=== PATIENT | male | born 1955 | race Caucasian/White ===

== ENCOUNTER 2024-05-17 06:11 | Day surgery (SDC) | payer MEDICARE, SELFPAY ==
--- NOTE | 2024-05-04 14:18 | VNURNOTE ---
[facility] liaison called patient to discuss [facility] joint protocol, post op plans. No answer, left message.
--- NOTE | 2024-05-04 14:25 | VNURNOTE ---
Patient is scheduled for an elective L RAMON on 05/17/24 - he is a same day patient with Dr Smith. Spoke with patient prior to surgery. Introduced role of [facility] Liaison. Patient reports that he lives with his in a MULTI story home.
There are 2 steps to enter and a flight of steps to the second floor.
There is a bathroom on the entry level manager. He currently functions independently. He will be obtaining a rolling walker next week.
PCP is Dr Rafy Fields.
Discussed [facility] joint protocol and post surgical plans.
Reviewed that he will have VN services initially and will then start outpatient PT.
Patient selects [facility] for his home care needs and [facility]. He thinks it is scheduled for 05/22.
Patient is in agreement with plan and states that his will be home with him. Advised to bring RW with him day of surgery. [facility].
Plan: [facility] per [facility] joint protocol then outpt PT on 05/22
[2024-05-08 11:32] LABS: % Eosinophils 4.1 % (0-6); % Immature Granulocytes 0.4 % (0-0.5); % Lymphocytes 25.8 % (20.5-51.1); % Monocytes 7.4 % (1.7-9.3); % Neutrophils 61.3 % (42.2-75.2); Absolute Basophils 0.1 10^3/uL (0-0.2); Absolute Eosinophils 0.2 10^3/uL (0-0.7); Absolute Lymphocytes 1.3 10^3/uL (1.2-3.4); Absolute Monocytes 0.4 10^3/uL (0.1-0.6); Absolute Neutrophils 3.2 10^3/uL (1.4-6.5); Hematocrit 49.7 % (39.0-52.0); Hemoglobin 16.8 g/dL (13.0-18.0); Mean Corp Hgb Conc. 33.8 g/dL (33.0-37.0); Mean Corpuscular Hgb 33.3 pg (27.0-31.0); Mean Corpuscular Volume 98.4 fL (80.0-94.0); Mean Platelet Volume 9.9 fL (7.4-10.4); Nucleated Red Blood Cells % 0 % (-); Platelet Count 178 10^3/uL (130-400); Red Blood Cell Count 5.05 10^6/uL (4.70-6.10); Red Cell Dist. Width 13.7 % (11.5-14.5); White Blood Cell Count 5.2 10^3/uL (4.8-10.8)
[2024-05-08 11:58] LABS: ALT (SGPT) 31 U/L (0-50); AST (SGOT) 27 U/L (17-59); Albumin 4.4 g/dl (3.5-5.0); Alkaline Phosphatase 71 U/L (38-126); Blood Urea Nitrogen 20 mg/dl (9-20); Calcium 10.5 mg/dl (8.4-10.2); Carbon Dioxide 25 mmol/L (22-30); Chloride 106 mmol/L (98-107); Glucose 120 mg/dl (70-99); Potassium 4.4 mmol/L (3.5-5.1); Sodium 141 mmol/L (135-145); Total Bilirubin 0.4 mg/dl (0.2-1.3); Total Protein 6.9 g/dl (6.3-8.2); eGFR > 60.00
[2024-05-08 12:21] LABS: Glycohemoglobin (HgbA1c) 5.3 % (4.0-5.6)
[2024-05-08 13:41] VITALS: BMI 27.9
[2024-05-11 10:47] VITALS: BMI 27.9
[2024-05-17] VITALS (14 sets, daily range): BP systolic 102–159; BP diastolic 50–101; PULSE 82; O2SAT 96; BMI 27.9
[2024-05-17] MEDS: CELEBREX 200 MG PO (06:31)
[2024-05-17] MEDS: TYLENOL 650 MG PO (06:31)
[2024-05-17] MEDS: NORMOSOL-R/PLASMALYTE-A 1000 IV (06:32)
--- NOTE | 2024-05-17 07:06 | W.DS.TRANS ---
DC Summary - [employer]
-
Discharge Instructions:
Discharge Diagnosis/Procedures L RAMON 05/17/24
Diet As tolerated
Activity With Walker
Driving Restrictions No driving
Bathing Restrictions OK to Shower
Other Services PT
Instructions:
Stand-Alone Forms: [facility] Total Hip and Knee D/C
Changes to Home Medications: Yes
Discharge Medications:
DC Medications w/original date entered in [facility]
ascorbic acid (vitamin C) 500 mg tablet (Vitamin C) 500 mg PO DAILY 05/02/24
coQ10 (ubiquinol) 100 mg capsule (Qunol Elver CoQ10) 100 mg PO DAILY 05/02/24
doxycycline hyclate 20 mg tablet 20 mg PO DAILY gum disease 05/02/24
fiber 1 tab PO TID 05/02/24
finasteride 5 mg tablet 5 mg PO DAILY 05/02/24
lisinopril 40 mg tablet 40 mg PO QPM 05/02/24
multivitamin 1 tab PO DAILY 05/02/24
celecoxib 200 mg capsule 200 mg PO DAILY anti-inflammatory #14 caps 05/08/24
dexamethasone 4 mg tablet 4 mg PO BID inflammation #6 tabs 05/08/24
famotidine 20 mg tablet 20 mg PO HS GI prophylaxis #30 tabs 05/08/24
gabapentin 300 mg capsule 300 mg PO HS sleep/pain #10 caps 05/08/24
mupirocin 2 % topical ointment 1 applic topical BID infection prevention #1 tube 05/08/24
ondansetron 4 mg disintegrating tablet 4 mg PO Q6H PRN n/v #20 tabs 05/08/24
oxycodone 5 mg tablet 5 mg PO Q6H PRN 1 tab moderate pain, 2 tabs severe pain #30 tabs 05/08/24
tamsulosin 0.4 mg capsule 0.4 mg PO HS prevent urinary retention #7 caps 05/08/24
acetaminophen 325 mg tablet (Tylenol) 650 mg (2 x 325 mg) PO QID #0 tabs 05/17/24
aspirin 325 mg tablet 325 mg PO DAILY blood clot prevention #1 tab 05/17/24
docusate sodium 100 mg capsule (Colace) 100 mg PO BID stool softner #1 cap 05/17/24
magnesium hydroxide 400 mg/5 mL oral suspension (Milk of Magnesia) 30 ml PO HS PRN Constipation #1 mL 05/17/24
sennosides 8.6 mg tablet (Senokot) 17.2 mg (2 x 8.6 mg) PO BID laxative #2 tabs 05/17/24
Home Medication Changes
celecoxib 200 mg capsule 200 mg PO DAILY anti-inflammatory #14 caps 05/08/24
dexamethasone 4 mg tablet 4 mg PO BID inflammation #6 tabs 05/08/24
famotidine 20 mg tablet 20 mg PO HS GI prophylaxis #30 tabs 05/08/24
gabapentin 300 mg capsule 300 mg PO HS sleep/pain #10 caps 05/08/24
mupirocin 2 % topical ointment 1 applic topical BID infection prevention #1 tube 05/08/24
ondansetron 4 mg disintegrating tablet 4 mg PO Q6H PRN n/v #20 tabs 05/08/24
oxycodone 5 mg tablet 5 mg PO Q6H PRN 1 tab moderate pain, 2 tabs severe pain #30 tabs 05/08/24
tamsulosin 0.4 mg capsule 0.4 mg PO HS prevent urinary retention #7 caps 05/08/24
acetaminophen 325 mg tablet (Tylenol) 650 mg (2 x 325 mg) PO QID #0 tabs 05/17/24
aspirin 325 mg tablet 325 mg PO DAILY blood clot prevention #1 tab 05/17/24
docusate sodium 100 mg capsule (Colace) 100 mg PO BID stool softner #1 cap 05/17/24
magnesium hydroxide 400 mg/5 mL oral suspension (Milk of Magnesia) 30 ml PO HS PRN Constipation #1 mL 05/17/24
sennosides 8.6 mg tablet (Senokot) 17.2 mg (2 x 8.6 mg) PO BID laxative #2 tabs 05/17/24
Pending Results: No
[2024-05-17] MEDS: ANCEF 5 IV (11:13)
== END 2024-05-17 12:00 | disposition home or self-care (01) ==
LOC: SDS 06:11
PROVIDERS: ATTENDING PHYSICIAN Orthopaedic Surgery; FAMILY PHYSICIAN Family Medicine; OTHER PHYSICIAN Physician Assistant Medical
DX: M16.12 Unilateral primary osteoarthritis, left hip (principal)
CPT/HCPCS: 27130; 36415; 73502; 80053; 83036; 85025; 87070; 97116; 97162; C1776

== ENCOUNTER → 2025-01-04 11:35 | Outpatient (REF) | payer MEDICARE, SELFPAY | LOC: PAVMRI 11:35 | PROVIDERS: ATTENDING PHYSICIAN Specialist; FAMILY PHYSICIAN Family Medicine | DX: M25.512 Pain in left shoulder (principal) | CPT/HCPCS: 73221 ==